=== PATIENT | male | born 2000 | race Caucasian/White ===

== ENCOUNTER 2024-10-05 12:47 | Emergency (ER) | payer OTHER, SELFPAY ==
--- NOTE | 2024-10-05 12:59 | ED_ITS ---
HPI - Ear Problem General Chief complaint: Ear Stated complaint: Ear Pain Time Seen by Provider: 10/05/24 12:59 Source: patient Mode of arrival: ambulatory Limitations: no limitations History of Present Illness HPI Narrative: 24 yo M presents with c/o sinus congestion and pressure for approx. 5 to 6 days. Flew home from [place] a few days ago and has had pain to R ear with decreased hearing since. Has tried sudafed with no relief of symptoms. All systems reviewed and negative except as noted above. Related Data Allergies Allergy/AdvReac Type Severity Reaction Status Date / Time No Known Allergies Allergy Verified 10/05/24 13:04 Review of Systems Review of Systems: CONSTITUTIONAL: Denies fever, chills, or sweats. EYES: Denies visual changes, redness, or discharge. ENT: Reports rhinorrhea, congestion, right ear pain with decreased hearing. Denies Denies sore throat CARDIOVASCULAR: Denies chest pain, palpitations, or edema. RESPIRATORY: Denies cough or dyspnea. GASTROINTESTINAL: Denies abdominal pain, nausea, vomiting, or diarrhea. GENITOURINARY: Denies dysuria or hematuria. SKIN: Denies rash or itching. MUSCULOSKELETAL: Denies back pain, joint pain, or myalgia. NEUROLOGIC: Denies headache, numbness, or weakness. PSYCHIATRIC: Denies anxiety or depression. All other systems reviewed are negative, except as documented in HPI. PMFSH Comments At time of signature, agree with nursing past medical, surgical, social and family history. There is no relevant family history pertinent to the presenting complaint. Exam Narrative: GENERAL: This is a well-nourished, well-developed patient, in no apparent distress. HEAD: normocephalic, atraumatic. EYES: PERRL. Sclera clear/white. Vision is grossly intact. EARS: External ears normal, auditory canals clear and without drainage, yellow fluid to R TM with mild erythema. Left TM normal. No perforation bilaterally. NOSE: External nose normal with mild congestion with clear nasal drainage, erythema to nares THROAT: Mucous membranes moist, erythema with postnasal drainage. No swelling or exudates NECK: Neck supple, non-tender without lymphadenopathy, masses or thyromegaly. CARDIOVASCULAR: Regular rate and rhythm without murmurs, gallops, or rubs. RESPIRATORY: Clear to auscultation. Breath sounds equal bilaterally. No wheezes, rales, or rhonchi. SKIN: warm, Dry, intact with no suspicious lesions or rash, good texture and turgor. NEURO: awake, alert, and oriented to person, place and time. There were no obv ious focal neurologic abnormalities. EXTREMITIES: No joint tenderness, effusion, or edema noted. Course Course Level of Care: Express Care Visit Vital Signs Vital signs: Vital Signs Temperature 36.3 C L 10/05/24 13:00 Pulse Rate 104 H 10/05/24 13:00 Respiratory Rate 16 10/05/24 13:00 Blood Pressure 141/98 H 10/05/24 13:00 Pulse Oximetry 96 10/05/24 13:00 Temperature 36.3 C L 10/05/24 13:00 Pulse Rate 104 H 10/05/24 13:00 Respiratory Rate 16 10/05/24 13:00 Blood Pressure 141/98 H 10/05/24 13:00 Pulse Oximetry 96 10/05/24 13:00 Reviewed Medical Decision Making MDM Narrative Medical decision making narrative: Patient is aware of diagnosis, understands and agrees to treatment plan. Anticipatory guidance given. Patient agrees to follow-up as directed and is aware of reasons to seek care at the emergency department. Portions of this record may have been created with voice recognition software Vital Signs Vital Signs: Vital Signs Temperature 36.3 C L 10/05/24 13:00 Pulse Rate 104 H 10/05/24 13:00 Respiratory Rate 16 10/05/24 13:00 Blood Pressure 141/98 H 10/05/24 13:00 Pulse Oximetry 96 10/05/24 13:00 Temperature 36.3 C L 10/05/24 13:00 Pulse Rate 104 H 10/05/24 13:00 Respiratory Rate 16 10/05/24 13:00 Blood Pressure 141/98 H 10/05/24 13:00 Pulse Oximetry 96 10/05/24 13:00 Discharge Plan Discharge Clinical Impression: Acute sinusitis, Acute dysfunction of right eustachian tube Patient Disposition: Home, Self-Care Condition: Stable Instructions: Antibiotic Form, Fluid In The Ear (Serous Otitis Media) (ED) Additional Instructions: Take medications as prescribed. Taking [id number] antihistamine such as Claritin or Zyrtec. Take ibuprofen every 6-8 hours as needed for pain. Drink at least 64 oz of water a day. Follow-up with your primary care physician if right ear pain is not improving. Patient Language: Slovenian Prescriptions: New amoxicillin 875 mg tablet 875 mg PO Q12H 10 Days Qty: 20 0RF methylprednisolone [Medrol (Facundo)] 4 mg tablets,dose pack See Rx Instructions PO .COMPLEX Qty: 21 0RF Rx Instructions: orally per package directions fluticasone propionate [Flonase Allergy Relief] 50 mcg/actuation spray,suspension 1 spray intranasal BID Qty: 16 0RF Rx Instructions: administer into each nostril Follow-up/Referrals: Yoly,Ben Jackson MD [Primary Care Provider] - Time of Disposition: 13:12
[2024-10-05 13:00] VITALS: BP 141/98; PULSE 104; RESP 16; TEMP 36.3; O2SAT 96
== END 2024-10-05 13:20 | disposition home or self-care (01) ==
PROVIDERS: Emergency Provider Nurse Practitioner Family; PCP Internal Medicine
DX: J01.90 Acute sinusitis, unspecified (principal); H69.91 Unspecified Eustachian tube disorder, right ear
CPT/HCPCS: 99213; G0463